=== PATIENT | female | born 1950 | race Caucasian/White ===

== ENCOUNTER → 2022-06-18 23:12 | Outpatient (CLI) | payer MEDICARE, OTHER, SELFPAY ==
[2022-06-18 17:06] LABS: Basophils # 0.1 K/mm3 (0-0.2); Basophils % 1.2 % (0.1-2.0); Eosinophils # 0.2 K/mm3 (0.0-0.4); Eosinophils % 2.9 % (0.1-12.0); Hematocrit 45.3 % (37.0-47.0); Hemoglobin 14.7 g/dL (12.2-16.2); Lymphocytes # 2.7 K/mm3 (0.7-4.5); Lymphocytes % 40.3 % (10-50); Mean Corpuscular HGB Conc 32.4 g/dL (31.8-35.4); Mean Corpuscular Hemoglobin 28.5 pg (27.0-31.2); Mean Corpuscular Volume 87.8 fl (81-99); Mean Platelet Volume 8.5 fl (7.4-10.4); Monocytes # 0.4 K/mm3 (0.1-1.0); Monocytes % 5.5 % (1.7-9.3); Neutrophils # 3.4 K/mm3 (1.8-7.8); Platelet Count 394 K/mm3 (142-424); Red Blood Count 5.16 M/mm3 (4.20-5.40); Red Cell Distribution Width 12.9 % (11.5-17.5); White Blood Count 6.7 K/mm3 (4.8-10.8)
[2022-06-18 17:28] LABS: Alanine Aminotransferase 26 U/L (12-78); Albumin Level 4.3 g/dl (3.5-5.0); Albumin/Globulin Ratio 1.6 (1.1-1.8); Alkaline Phosphatase 133 U/L (38-126); Anion Gap 8.2 mEq/L (5-15); Aspartate Amino Transferase 29 U/L (14-36); Bilirubin,Total 0.6 mg/dl (0.2-1.3); Blood Urea Nitrogen 10 mg/dl (7-17); Calcium 9.3 mg/dl (8.4-10.2); Carbon Dioxide 27 mmol/L (22.0-30.0); Chloride 109 mmol/L (98-107); Chol/HDL Ratio 2.9 (1-3.5); Cholesterol 152 mg/dl (140-200); Estimated Glomerular Filt Rate 71 ml/min (>60); GFR (African American) 86 ML/MIN (>60); Globulin 2.7 g/dL (1.3-3.2); Glucose 99 mg/dl (74-100); HDL Cholesterol 53 mg/dl (40-60); Potassium 4.2 mmoL/L (3.5-5.1); Sodium 140 mmol/L (136-145); Triglycerides 130 mg/dl (30-150); VLDL Cholesterol 26 mg/dL (0-40)
[2022-06-18 17:39] LABS: Direct LDL Cholesterol 64.86 mg/dL (100-129)
== END ==
PROVIDERS: PCP Family Medicine; Visit Provider Family Medicine
DX: I10 Essential (primary) hypertension (principal); E78.5 Hyperlipidemia, unspecified
CPT/HCPCS: 80053; 80061; 85025

== ENCOUNTER 2023-10-27 16:51 | Outpatient (CLI) | payer MEDICARE, OTHER, SELFPAY ==
[2023-10-27 17:17] LABS: Basophils # 0.1 K/mm3 (0-0.2); Basophils % 0.8 % (0.1-2.0); Eosinophils # 0.2 K/mm3 (0.0-0.4); Eosinophils % 3.6 % (0.1-12.0); Hematocrit 43.2 % (37.0-47.0); Hemoglobin 14.1 g/dL (12.2-16.2); Lymphocytes # 2.8 K/mm3 (0.7-4.5); Mean Corpuscular HGB Conc 32.6 g/dL (31.8-35.4); Mean Corpuscular Hemoglobin 29.1 pg (27.0-31.2); Mean Corpuscular Volume 89.2 fl (81-99); Mean Platelet Volume 8.9 fl (7.4-10.4); Monocytes # 0.4 K/mm3 (0.1-1.0); Monocytes % 5.8 % (1.7-9.3); Neutrophils % 46.7 % (37.0-80.0); Platelet Count 295 K/mm3 (142-424); Red Blood Count 4.84 M/mm3 (4.20-5.40); Red Cell Distribution Width 13.6 % (11.5-17.5); White Blood Count 6.4 K/mm3 (4.8-10.8)
[2023-10-27 17:56] LABS: Alanine Aminotransferase 21 U/L (12-78); Albumin Level 4.2 g/dl (3.5-5.0); Albumin/Globulin Ratio 1.6 (1.1-1.8); Alkaline Phosphatase 120 U/L (38-126); Anion Gap 8.9 mEq/L (5-15); Aspartate Amino Transferase 27 U/L (14-36); Bilirubin,Total 0.6 mg/dl (0.2-1.3); Blood Urea Nitrogen 11 mg/dl (7-17); Calcium 9.7 mg/dl (8.4-10.2); Carbon Dioxide 28 mmol/L (22.0-30.0); Chloride 108 mmol/L (98-107); Chol/HDL Ratio 2.4 (1-3.5); Cholesterol 159 mg/dl (140-200); Estimated Glomerular Filt Rate 70 ml/min (>60); GFR (African American) 85 ML/MIN (>60); Globulin 2.7 g/dL (1.3-3.2); Glucose 91 mg/dl (74-100); HDL Cholesterol 66 mg/dl (40-60); Potassium 4.9 mmoL/L (3.5-5.1); Sodium 140 mmol/L (136-145); Total Protein,Serum 6.9 g/dl (6.3-8.2); Triglycerides 105 mg/dl (30-150); VLDL Cholesterol 21 mg/dL (0-40)
[2023-10-27 19:31] LABS: Direct LDL Cholesterol 56.92 mg/dL (100-129)
== END 2023-10-27 23:59 | disposition home or self-care (01) ==
LOC: LAB.DROPOF 16:51
PROVIDERS: PCP Nurse Practitioner Family; Visit Provider Nurse Practitioner Family
DX: I10 Essential (primary) hypertension (principal); E78.5 Hyperlipidemia, unspecified
CPT/HCPCS: 80053; 80061; 84443; 85025

== ENCOUNTER 2024-12-10 10:56 | Outpatient (CLI) | payer MEDICARE, OTHER, SELFPAY ==
[2024-12-10 19:03] LABS: Hematocrit 45.9 % (37.0-47.0); Hemoglobin 14.9 g/dL (12.2-16.2); Immature Granulocytes % 0.1 %; Mean Corpuscular HGB Conc 32.5 g/dL (31.8-35.4); Mean Corpuscular Hemoglobin 29.0 pg (27.0-31.2); Mean Corpuscular Volume 89.3 fl (81-99); Nucleated Red Blood Cells % 0 %; Platelet Count 265 K/mm3 (142-424); Red Blood Count 5.14 M/mm3 (4.20-5.40); Red Cell Distribution Width-SD 41.2 fL; White Blood Count 6.8 K/mm3 (4.8-10.8)
[2024-12-10 19:42] LABS: Albumin Level 4.8 g/dl (3.5-5.0); Chloride 106 mmol/L (98-107); Sodium 141 mmol/L (136-145)
[2024-12-10 19:43] LABS: Potassium 4.6 mmoL/L (3.5-5.1)
[2024-12-10 19:45] LABS: Alanine Aminotransferase 25 U/L (12-78); Albumin/Globulin Ratio 1.8 (1.1-1.8); Alkaline Phosphatase 108 U/L (38-126); Anion Gap 14.6 mEq/L (5-15); Aspartate Amino Transferase 40 U/L (14-36); Bilirubin,Total 0.8 mg/dl (0.2-1.3); Blood Urea Nitrogen 15 mg/dl (7-17); Carbon Dioxide 25 mmol/L (22.0-30.0); Cholesterol 182 mg/dl (140-200); Creatinine,Serum 0.80 mg/dl (0.52-1.04); Estimated Glomerular Filt Rate 70 ml/min (>60); GFR (African American) 85 ML/MIN (>60); Globulin 2.7 g/dL (1.3-3.2); Total Protein,Serum 7.5 g/dl (6.3-8.2); Triglycerides 113 mg/dl (30-150)
[2024-12-10 19:46] LABS: Calcium 9.8 mg/dl (8.4-10.2); Glucose 56 mg/dl (74-100); HDL Cholesterol 81 mg/dl (40-60)
[2024-12-10 20:17] LABS: Thyroid Stimulating Hormone 0.76 uIU/mL (0.465-4.68)
--- OUTSIDE RECORDS SUMMARY | 2024-12-13 11:40 | XMS_ITS | Referral Summary ---
Author Organization [employer] ([place], [place], [place], [place]) Address [address] [place] [address] Care Team Providers Care Commercial Lines Account Executive Name Role Phone Massimo Arreola MD Primary Care Provider +1- [phone] Allergies No known active allergies Medications cyclobenzaprine (FLEXERIL) 10 MG tablet Take 1 tablet (10 mg total) by mouth every night as needed. 02/19/2023 Active lisinopriL (PRINIVIL,ZESTRI L) 30 MG tablet Take 1 tablet (30 mg total) by mouth once. 01/14/2023 Active rosuvastatin (CRESTOR) 5 MG tablet Take 1 tablet (5 mg total) by mouth once. 01/14/2023 Active traZODone (DESYREL) 50 MG tablet Take by mouth. 02/15/2023 Active Active Problems Problem Noted Date Diagnosed Date Post-traumatic osteoarthritis of left knee 03/04 Social History Tobacco Use Types Packs/Day Years Used Date Smoking Tobacco: Never Smokeless Tobacco: Never Tobacco Cessation:Counseling Given: Not Answered Alcohol Use Standard Drinks/Week Comments Never 0 (1 standard drink = 0.6 oz pur e alcohol) Food Insecurity Answer Date Recorded Food run out past 12 months Not on file 04/21 Food did not last past 12 months Not on file 05/01/2023 Employment Answer Date Recorded Help finding and keeping a job Not on file 0 05/01/2023 Family and Community Support Answer Shai e Recorded Help with Day to Day Activities Not on file 05/01/2023 Feeling Lonely or Isolated Not on file 05/01 Educational Attainment Answer Date Brian rded Speak language other than Belarusian at home Not on file 05/01/2023 Want help with school or training Not on file 05/01/2023 Substance Use Answer Date Recorded Used prescription meds for non-medical reasons N ot on file 05/01/2023 Used illegal drugs past 12 months Not on file 05/01/2023 Comments Unknown Sex and Gender Information Value Date Recorded Sex Assigned at Not on file Legal Sex Female 5:27 PM CDT Gender Identity Not on file Sexual Orientation Not on file Last Filed Vital Signs Vital Sign Reading Time Taken Comments Blood Pressure 109/75 03/04/2023 10:55 AM EST Pulse 72 03/04/2023 10:55 AM EST Temperature - - Respiratory Rate - - Oxygen Saturation - - Inhaled Oxygen Concentration - - Weight 69 kg (152 lb 3.2 oz) 03/04/2023 10:55 AM EST Height 162.6 cm (5' 4 ) 03/04/2023 10:55 AM EST Body Mass Index 26.13 03/04/2023 10:55 AM EST Plan of Treatment Not on file Insurance MEDICARE PART A B [employer] [facility] [facility] [employer] Care Teams Commercial Lines Account Executive Relationship Specialty Start Date End Date Massimo Arreola MD [address] [place] [address] [place] [address] PCP - General Family Medicine 03/04/23
--- OUTSIDE RECORDS SUMMARY | 2024-12-13 11:40 | XMS_ITS | Encounter Summary ---
Author Organization [email or web address] ([place], [place], [place], [place]) Address [address] [place] [address] Care Team Providers Care Government Professor Name Role Phone Massimo Arreola MD Primary Care Provider +1- [phone] Reason for Referral * Diagnostic X-Ray (Routine) - Closed Specialty Diagnoses / Procedures Referred By Vicky t Referred To Contact Diagnoses Arthralgia of left lower leg Procedures XR KNEE 3 VIEWS LEFT Non-Weight Bearing Massimo Arreola MD [address] [place] [address] Phone: tel: fax: Referral ID Status Reason Start Date Expiration Date Visits Re quested Visits Authorized [id number] Closed 01/31/2023 07/30/2023 1 1 Encounter Details Date Type Department Care Team (Late st Contact Info) Description 01/31/2023 Outside Orders [facility] Admitting [address] [place] [phone] Massimo Arreola MD [address] [place] [facility] [address] [place] [address] Arthralgia of left lower leg (Primary Dx) Social History Tobacco Use Types Packs/Day Years Used Date Smoking Tobacco: Never Assessed Food Insecurity Answer Date Recorded Food run [...] Date Brian rded Speak language other than Burkinan at home Not on file 05/01/2023 Want [...] on file Sexual Orientation Not on file COVID-19 Exposure Response Date Recorded In the last 10 days, have yo u been in contact with someone who was confirmed or suspected to have Coronavirus/COVID-19? No / Unsure 01/31/2023 8:14 AM EDT documented as of this encounter Plan of Treatment Not on file documented as of this encounter Results * XR KNEE 3 VIEWS LEFT Non-Weight Bearing (01/31/2023 8:23 AM EDT) Anatomical Region Laterality Modality Knee X-Ray 01/31/2023 8:45 AM EDT Impressions 01/31/2023 8:53 AM EDT Mild degenerative findings without acute fracture. Images reviewed, interpreted, and dictated by Dr. Luis Alberto Bowman. Transcribed by Christal Wu PA-C. Narrative 01/31/2023 8:53 AM EDT LEFT KNEE SERIES. HISTORY: Left knee pain. FINDINGS:3 views show no evidence of an acute, displaced fracture or dislocation of the visualized bony architecture. There is mild medial compartment degenerative change. No soft tissue abnormality is seen. No effusion identified. Procedure Note Melba Bowman MD - 01/31/2023 LEFT KNEE SERIES. HISTORY: Left knee pain. FINDINGS:3 views show no evidence of an acute, displaced fracture or dislocation of the visualized bony architecture. There is mild medial compartment degenerative change. No soft tissue abnormality is seen. No effusion identified. IMPRESSION: Mild degenerative findings without acute fracture. Images reviewed, interpreted, and dictated by Dr. Luis Alberto Bowman. Transcribed by Christal Wu PA-C. us Massimo Arreola MD IMG DIAGNOSTIC IMAGING ORD ERABLES Final Result documented in this encounter Visit Diagnoses Diagnosis Arthralgia of left lower leg- Primary Arthralgia of left lower leg documented in this encounter Care Teams Government Professor Relationship Specialty Start Date End Date Massimo Arreola MD [address] [place] [address] [place] [address] PCP - General Family Medicine 03/04/23 documented as of this encounter
--- OUTSIDE RECORDS SUMMARY | 2024-12-13 11:40 | XMS_ITS | Clinical Summary ---
Author Organization [employer] ([place], [place], [place], [place]) Address [address] [place] [address] Care Team Providers Care Sales Assistant Entertainment [employer] Media Name Role Phone Massimo Arreola MD Primary Care Provider +1- [phone] Allergies No known active allergies Medications cyclobenzaprine [...] Date Brian rded Speak language other than Bruneian at home Not on file 05/01/2023 Want [...] 03/04/2023 10:55 AM EST Plan of Treatment Health Maintenance Due Date Last Done Comments CT Colonography 1950 Colonoscopy 1950 Colorectal Cancer Screening 1950 DXA SCAN 1950 FOBT/FIT 1950 Fit-DNA (Cologuard) 1950 Sigmoidoscopy 1950 Depression Screening (12+) 1962 Hepatitis C Screening 1968 DTAP/TDAP/TD VACCINES (1 - Tdap) 1969 Breast Cancer Screening 1990 Pneumococcal 50+ years (1 of 1 - PCV) 2000 Shingles Vaccine (Zoster) (1 of 2) 2000 Medicare Initial AWV [id number] 07/21/2016 COVID-19 VACCINE (5 - 2023-2 5 season) 2023 12/17/2021, 03/22/2021, 07/13/2020, Additional history exists Tobacco Cessation Counseling and Screening (12+) 03/04/2024 03/04/2023 Falls Risk Screening 04/21/2024 Influenza Vaccine (#1) 2024 02/27/2018 Respiratory Syncytial Virus (RSV) Adult or (1 - 1-dose 75+ series) 2025 Insurance MEDICARE PART A B [facility] SUPP Care Teams Sales Assistant Entertainment And Media Relationship Specialty Start Date End Date Massimo Arreola MD [address] [place] [address] [place] [address] PCP - General Family Medicine 03/04/23
== END 2024-12-10 23:59 | disposition home or self-care (01) ==
LOC: LAB.DROPOF 12-13 10:57
PROVIDERS: PCP Nurse Practitioner Family; Visit Provider Nurse Practitioner Family
DX: E78.5 Hyperlipidemia, unspecified (principal); Z11.4 Encounter for screening for human immunodeficiency virus [HIV]; I10 Essential (primary) hypertension
CPT/HCPCS: 80053; 80061; 84443; 85025; 87389